=== PATIENT | female | born 2000 | race Caucasian/White ===

== ENCOUNTER 2020-03-18 17:49 | Emergency (ER) | payer OTHER ==
[2020-03-18] MEDS ORDERED: predniSONE 20 MG TAB As Ordered ONE (18:32)
[2020-03-18] MEDS ORDERED: predniSONE 20 MG TAB ONE (18:32)
== END 2020-03-18 18:35 | disposition home or self-care (01) ==
LOC: M ED 17:49
DX: T78.40XA Allergy, unspecified, initial encounter (principal); Y92.89 Other specified places as the place of occurrence of the external cause; F17.210 Nicotine dependence, cigarettes, uncomplicated

== ENCOUNTER → 2020-03-19 | Emergency (ER) | payer OTHER | END | disposition left against medical advice (07) | LOC: M ED 15:45 | DX: Z53.21 Procedure and treatment not carried out due to patient leaving prior to being seen by health care provider (principal) ==

== ENCOUNTER → 2020-05-16 | Outpatient (REF) | payer OTHER | LOC: M LAB REF 19:28 | PROVIDERS: ATTEND Physician Assistant | DX: J02.9 Acute pharyngitis, unspecified (principal) ==

== ENCOUNTER 2020-05-23 13:22 | Emergency (ER) | payer OTHER ==
[~2020-05-23] VITALS: Ht 170.2 cm; Wt 50.3 kg
[2020-05-23 15:09] LABS: BASO % 0.5 % (0.0-1.0); EOS % 0.2 % (0.0-3.0); HEMATOCRIT 48.4 % (36.0-47.0); HEMOGLOBIN 16.2 g/dl (12.0-15.5); LYMPH # 1.8 10^3/uL (1.5-5.0); LYMPH % 29.7 % (24.0-44.0); MEAN CORPUSCULAR HEMOGLOBIN 30.2 pg (27.0-33.0); MEAN CORPUSCULAR HGB CONC 33.5 g/dl (32.0-36.5); MEAN CORPUSCULAR VOLUME 90.1 fl (80.0-96.0); MONO # 0.4 10^3/uL (0.0-0.8); MONO % 6.3 % (0.0-5.0); NEUTROPHILS # 3.8 10^3/uL (1.5-8.5); PLATELET COUNT, AUTOMATED 270 10^3/uL (150-450); RED BLOOD COUNT 5.37 10^6/uL (4.00-5.40)
[2020-05-23 15:59] LABS: ERYTHROCYTE SEDIMENTATION RATE 2 mm/hr (0-20)
--- NOTE | 2020-05-23 16:05 | REPVR ---
PROCEDURE INFORMATION: Exam: US Left Breast Limited Exam date and time: 05/23/2020 3:17 PM Age: 20 years old Clinical indication: Screening exam; No personal or family HX of malignancy; Patient HX: PT states area tender for 2 weeks, provider concerned for abscess, PT states no redness, swelling or fever; Additional info: Pain/swelling left lateral breat ? abscess TECHNIQUE: Imaging protocol: Limited ultrasound of Left breast with image documentation, including axilla when performed. Exam focused on the search and evaluation for mass. COMPARISON: No relevant prior studies available. FINDINGS: Breast: Sonographic evaluation of the left breast from the 2:00 o'clock to the 4:00 o'clock positions was performed, which is the area of clinical concern of redness and swelling. No solid or cystic lesions seen in this area of the breast. No areas of fluid collection which could represent abscess formation. No significant abnormality identified. IMPRESSION: No sonographic evidence of a breast abscess. ASSESSMENT: BI-RADS 1: negative. Electronically signed by: Michael Poon On 05/23/2020 16:05:22 PM
[2020-05-23 16:18] VITALS: BP 107/67
== END 2020-05-23 16:19 | disposition home or self-care (01) ==
LOC: M ED 13:22
DX: N64.4 Mastodynia (principal); F17.200 Nicotine dependence, unspecified, uncomplicated; F12.10 Cannabis abuse, uncomplicated; Z79.3 Long term (current) use of hormonal contraceptives; Z91.030 Bee allergy status

== ENCOUNTER 2020-09-14 22:10 | Emergency (ER) | payer OTHER ==
[~2020-09-14] VITALS: Ht 170.2 cm; Wt 54.5 kg
--- OUTSIDE RECORDS SUMMARY | 2020-09-14 22:14 | CCD ---
Author Author [facility] Organization [facility] Address Unknown Phone Unavailable Care Team Providers Care Laser Beam Machine Operator Name Role Phone SUZANNEEJ PA Unavailable Unavailable SUZANNE, EJ PA Unavailable Unavailable SUZANNE, EJ PA Unavailable Unavailable SUZANNE, EJ PA Unavailable Unavailable SUZANNE, EJ PA Unavailable Unavailable SUZANNE, EJ PA Unavailable Unavailable SUZANNE, EJ PA Unavailable Unavailable SUZANNE, EJ PA Unavailable Unavailable SUZANNE, EJ PA Unavailable Unavailable SUZANNE, EJ PA Unavailable Unavailable SUZANNE, EJ PA Unavailable Unavailable SUZANNE, EJ PA Unavailable Unavailable SUZANNE, EJ PA Unavailable Unavailable SUZANNE, EJ PA Unavailable Unavailable SUZANNE, EJ PA Unavailable Unavailable SUZANNE, EJ PA Unavailable Unavailable SUZANNE, EJ PA Unavailable Unavailable SUZANEN, EJ PA Unavailable Unavailable SUZANNE, EJ PA Unavailable Unavailable SUZANNE, EJ PA Unavailable Unavailable SUZANNE, EJ PA Unavailable Unavailable SUZANNE, EJ PA Unavailable Unavailable SUZANNE, EJ PA Unavailable Unavailable SUZANNE, EJ PA Unavailable Unavailable SUZANNE, EJ PA Unavailable Unavailable SUZANNE, EJ PA Unavailable Unavailable SUZANNE, EJ PA Unavailable Unavailable SUZANNE, EJ PA Unavailable Unavailable SUZANNE, EJ PA Unavailable Unavailable SUZANNE, EJ PA Unavailable Unavailable SUZANNE, EJ PA Unavailable Unavailable SUZANNE, EJ PA Unavailable Unavailable SUZANNE, EJ PA Unavailable Unavailable SUZANNE, EJ PA Unavailable Unavailable SUZANNE, EJ PA Unavailable Unavailable SUZANNE, EJ PA Unavailable Unavailable SUZANNE, EJ PA Unavailable Unavailable EJ PALACIOS Unavailable Unavailable Re-disclosure Warning The records that you are about to access may contain information from federally-assisted alcohol or drug abuse programs. If such information is present, then the following federally mandated warning applies: This information has been disclosed to you from records protected by federal confidentiality rules (42 CFR part 2). The federal rules prohibit you from making any further disclosure of this information unless further disclosure is expressly permitted by the written consent of the person to whom it pertains or as otherwise permitted by 42 CFR part 2. A general authorization for the release of medical or other information is NOT sufficient for this purpose. The Federal rules restrict any use of the information to criminally investigate or prosecute any alcohol or drug abuse patient.The records that you are about to access may contain highly sensitive health information, the redisclosure of which is protected by Article 27-F of the [facility] Public Health law. If you continue you may have access to information: Regarding HIV / AIDS; Provided by facilities licensed or operated by the [facility] Office of Mental Health; or Provided by the [facility] Office for People With Developmental Disabilities. If such information is present, then the following [facility] mandated warning applies: This information has been disclosed to you from confidential records which are protected by state law. State law prohibits you from making any further disclosure of this information without the specific written consent of the person to whom it pertains, or as otherwise permitted by law. Any unauthorized further disclosure in violation of state law may result in a fine or mcc sentence or both. A general authorization for the release of medical or other information is NOT sufficient authorization for further disc losure. Encounters Encounter Providers Location Date Indications Data Source(s ) Outpatient Attender: EJ Siegel ry 05/16/2020 04:50:00 PM EDT [facility] ([facility], [facility]) Insurance Providers Payer name Policy type / Coverage type Policy ID Covered constitution party ID Covered constitution party's relationship to mckeon Policy Mckeon Plan Information EAST HUMANA [id number] HU2 [id number] HUMANA EAST REG O [id number] P [id number] EAST HUMANA [id number] 2 [id number] ACTIVE DUTY [id number] [id number] Results ID Date Data Source [id number] 05/28/2020 12:00:00 AM EDT [facility] Yanet Hannon NP Patient Name: DELONTE OCHOA [id number] Date of :[address] [address] Date of Exam: 05/28/2020PH#: Fax: [phone] CORRE CTED REPORT: The referring information was incorrect on the originalreport. Only the referring information was changed. Nothing has changedin the body of the report.EXAM: MAMMO UNI DIAGNOSTIC INCLUD CAD AND ULTRASOUND BREAST UNI LIMITEDCLINICAL INFORMATION: Diagnostic left breast.Based on the personal and family history information your patient suppliedat the time of imaging, her lifetime risk of breast cancer estimated by theTyrer-Cuzick model is 16.6%. Given that this patient has less than 20% TCrisk score, no further medical management is currently recommended at thistime.There are no priors for comparison.The patient presents with a clinically palpable mass in the left breastupper/outer quadrant for which standard 2D FFDM was obtained in the CC andMLO projections along with diagnostic digital magnified spot compressionviews over the area of interest indicated by the technologist placing atriangular shaped marker on the skin. 3D digital breast tomosynthesis ofthe left breast was also obtained in both CC and MLO projections.The patient states that the last clinical breast exam was in May.Dense heterogeneous fibroglandular elements are seen bilaterally to such adegree that the sensitivity of the mammogram in detecting cancer isdecreased. There are no masses. There is no internal architecturaldistortion. There are no suspicious microcalcific clusters.Diagnostic digital magnified spot compression views over the region ofinterest in the CC and MLO projections show no abnormalities.Diagnostic left breast ultrasonography over the region of interest from 12to 3 o'clock positions inclusive show no cystic or solid masses.The Volpara volumetric breast density category is D, the breasts areextremely dense which lowers the sensitivity of mammography.IMPRESSION:BI-RADS Category 2 - Benign Finding(s). There is no mammographic evidenceor ultrasonographic evidence of malignant alteration of the left breast.A negative mammogram and a negative ultrasound examination should nevercurtail biopsy of a clinically palpable mass or clinically suspicious areaof the breast. Surgical consultation and/or breast MRI should beconsidered.BINH Trevizo/Christopher you for referring DELONTE OCHOA to our office.cc: BRENDA Conteh Electronically Signed - DENISE STEPHENSON DO 05/30/20 13:27 Name Value Range Interpretation Code Description Data Laureen rce(s) Supporting Document(s) ID Date Data Source [id number] 05/28/2020 12:00:00 AM EDT [facility] Yanet Hannon NP Patient Name: DELONTE OCHOA [id number] [facility]. Date of :2000[facility] [place] [address] Date of Exam: 05/28/2020#: Fax: [phone] CORRE CTED REPORT: The referring information was incorrect on the originalreport. Only the referring information was changed. Nothing has changedin the body of the report.EXAM: MAMMO UNI DIAGNOSTIC INCLUD CAD AND ULTRASOUND BREAST UNI LIMITEDCLINICAL INFORMATION: Diagnostic left breast.Based on the personal and family history information your patient suppliedat the time of imaging, her lifetime risk of breast cancer estimated by theTyrer-Cuzick model is 16.6%. Given that this patient has less than 20% TCrisk score, no further medical management is currently recommended at thistime.There are no priors for comparison.The patient presents with a clinically palpable mass in the left breastupper/outer quadrant for which standard 2D FFDM was obtained in the CC andMLO projections along with diagnostic digital magnified spot compressionviews over the area of interest indicated by the technologist placing atriangular shaped marker on the skin. 3D digital breast tomosynthesis ofthe left breast was also obtained in both CC and MLO projections.The patient states that the last clinical breast exam was in May.Dense heterogeneous fibroglandular elements are seen bilaterally to such adegree that the sensitivity of the mammogram in detecting cancer isdecreased. There are no masses. There is no internal architecturaldistortion. There are no suspicious microcalcific clusters.Diagnostic digital magnified spot compression views over the region ofinterest in the CC and MLO projections show no abnormalities.Diagnostic left breast ultrasonography over the region of interest from 12to 3 o'clock positions inclusive show no cystic or solid masses.The Volpara volumetric breast density category is D, the breasts areextremely dense which lowers the sensitivity of mammography.IMPRESSION:BI-RADS Category 2 - Benign Finding(s). There is no mammographic evidenceor ultrasonographic evidence of malignant alteration of the left breast.A negative mammogram and a negative ultrasound examination should nevercurtail biopsy of a clinically palpable mass or clinically suspicious areaof the breast. Surgical consultation and/or breast MRI should beconsidered.BINH Trevizo/Christopher you for referring DELONTE OCHOA to our office.cc: BRENDA Conteh Electronically Signed - DENISE STEPHENSON DO 05/30/20 13:27 Name Value Range Interpretation Code Description Data Laureen rce(s) Supporting Document(s) ID Date Data Source [id number] 05/16/2020 05:28:00 PM EDT [facility] ([facility], [facility]) Name Value Range Interpretation Code Description Data Laureen rce(s) Supporting Document(s) Group A Strep Culture Laboratory test result [facility] ([facility]) FULL REPORT IN LAB NOTES (eCW and [facility] ). NEGATIVE FOR STREP PYOGENES (GROUP A) Procedure Social History Code Duration Value Status Description Data Source(s ) Smoking 05/16/2020 12:00:00 AM EDT Patient is a former smoker completed Patient is a former smoker [facility] ([facility]) Vital Signs ID Date Data Source UNK Name Value Range Interpretation Code Description Data Source(s) Body mass index (BMI) [Ratio] 18.0 kg/m2 18.0 k g/m2 [facility] ([facility]) Body height 67 [in_i] 67 [in_i] [facility] ([facility]) 5'7" Body weight 115.00 [lb_av] 115.00 [lb_av] [facility] ([facility]) Body temperature 98.0 [degF] 98.0 [degF] [facility] ([facility]) Oxygen saturation in Arterial blood by Pulse oximetry 96 % 96 % [facility] ([facility]) Respiratory rate 14 /min 14 /min [facility] ( [facility]) Heart rate 78 /min 78 /min [facility] ([facility]) Diastolic blood pressure 75 mm[Hg] 75 mm[Hg] [facility] ([facility]) Systolic blood pressure 138 mm[Hg] 138 mm[Hg] [facility])
[2020-09-14] MEDS ORDERED: PREN27TA3 (22:16)
--- OUTSIDE RECORDS SUMMARY | 2020-09-14 22:57 | CCD ---
Author Author [facility] Organization [facility] Address Unknown Phone Unavailable Care Team Providers Care Supervisor Central Supply Name Role Phone SUZANNEEJ PA Unavailable Unavailable [...] is protected by Article 27-F of the [facility] Public Health law. If you continue you may have access to information: Regarding HIV / AIDS; Provided by facilities licensed or operated by the [facility] Office of Mental Health; or Provided by the [facility] Office for People With Developmental Disabilities. If such information is present, then the following [facility] mandated warning applies: This information has been [...] law may result in a fine or usp sentence or both. A general authorization for the release of medical or other information is NOT sufficient authorization for further disc losure. Encounters Encounter Providers Location Date Indications Data Source(s ) Outpatient Attender: EJ Siegel ry 05/16/2020 04:50:00 PM EDT [facility] ([facility], [facility]) Insurance Providers Payer name Policy type / Coverage type Policy ID Covered democrat ID Covered democrat's relationship to mckeon Policy Mckeon Plan Information [employer] [id number] HU2 [id number] HUMANA EAST REG O [id number] P [id number] EAST [employer]NA [id number] ACTIVE DUTY [id number] UNK2 [id number] Results ID Date Data Source [id number] 05/28/2020 12:00:00 AM EDT [facility] Yanet Hannon NP Patient Name: DELONTE OCHOA [id number] Date of :[address] [address] Date of Exam: 05/28/2020PH#: Fax: [phone] CORRE [...] rce(s) Supporting Document(s) ID Date Data Source [id number] 05/28/2020 12:00:00 AM EDT [facility] Yanet Hannon NP Patient Name: DELONTE OCHOA [id number] [facility]. Date of :[address] [place] [address] Date of Exam: 05/28/2020#: Fax: [phone] CORRE [...] rce(s) Supporting Document(s) ID Date Data Source [id number] 05/16/2020 05:28:00 PM EDT [facility] ([facility], [facility]) Name Value Range Interpretation Code Description Data Luareen rce(s) Supporting Document(s) Group A Strep Culture Laboratory test result [facility] ([facility]) FULL REPORT IN LAB NOTES ([facility]CW and [facility] ). NEGATIVE FOR STREP PYOGENES (GROUP A) Procedure Social History Code Duration Value Status Description Data Source(s ) Smoking 05/16/2020 12:00:00 AM EDT Patient is a former smoker completed Patient is a former smoker [facility] ([facility]) Vital Signs ID Date Data Source UNK Name Value Range Interpretation Code Description Data Source(s) Body mass index (BMI) [Ratio] 18.0 kg/m2 18.0 k g/m2 [facility] ([facility]) Body height 67 [in_i] 67 [in_i] [facility] ([facility]) 5'7" Body weight 115.00 [lb_av] 115.00 [lb_av] [facility] ([facility]) Body temperature 98.0 [degF] 98.0 [degF] [facility] ([facility]) Oxygen saturation in Arterial blood by Pulse oximetry 96 % 96 % [facility] ([facility]) Respiratory rate 14 /min 14 /min [facility] ( [facility]) Heart rate 78 /min 78 /min [facility] ([facility]) Diastolic blood pressure 75 mm[Hg] 75 mm[Hg] [facility] ([facility]) Systolic blood pressure 138 mm[Hg] 138 mm[Hg] [facility])
[2020-09-15 00:15] VITALS: BP 104/61
== END 2020-09-15 00:18 | disposition home or self-care (01) ==
LOC: M ED 22:10
DX: O9A.211 Injury, poisoning and certain other consequences of external causes complicating pregnancy, first trimester (principal); W00.0XXA Fall on same level due to ice and snow, initial encounter; Y92.410 Unspecified street and highway as the place of occurrence of the external cause; Z91.030 Bee allergy status; O99.511 Diseases of the respiratory system complicating pregnancy, first trimester; J30.89 Other allergic rhinitis; Z77.098 Contact with and (suspected) exposure to other hazardous, chiefly nonmedicinal, chemicals; Z3A.01 Less than 8 weeks gestation of pregnancy

== ENCOUNTER 2020-11-11 18:47 | Emergency (ER) | payer OTHER ==
[~2020-11-11] VITALS: Ht 172.7 cm; Wt 56.8 kg
[~2020-11-11 18:47] MED LIST: PREN27TA3
[2020-11-11] MEDS ORDERED: diazePAM 5MG TABLET PO ONE (19:55)
[2020-11-11] MEDS ORDERED: ACETAMINOPHEN 325 MG TAB PO ONE (19:55)
[2020-11-11 21:15] VITALS: BP 101/58
[2020-11-11] MEDS ORDERED: VALI5TAB PO (21:48)
== END 2020-11-11 22:03 | disposition home or self-care (01) ==
LOC: M ED 18:47
DX: S39.012A Strain of muscle, fascia and tendon of lower back, initial encounter (principal); X58.XXXA Exposure to other specified factors, initial encounter; Y92.89 Other specified places as the place of occurrence of the external cause; Z77.098 Contact with and (suspected) exposure to other hazardous, chiefly nonmedicinal, chemicals; F12.20 Cannabis dependence, uncomplicated

== ENCOUNTER → 2021-01-02 | Outpatient (REF) | payer OTHER ==
[~2021-01-02] MED LIST changes: +VALI5TAB PO
== END ==
LOC: M WUC 12:31
PROVIDERS: ATTEND Physician Assistant
DX: J02.9 Acute pharyngitis, unspecified (principal)

== ENCOUNTER 2021-04-04 09:37 | Outpatient (CLI) | payer OTHER ==
[~2021-04-04] VITALS: Ht 170.2 cm; Wt 65.3 kg
[2021-04-04 09:58] VITALS: BP 114/69
[2021-04-04] MEDS ORDERED: TUMS750C22 PO (10:02)
[2021-04-04] MEDS ORDERED: TUMS750C5 PO (10:02)
[2021-04-04] MEDS ORDERED: HOME MED LIST COMPLETE! XX SCH (10:05)
--- NOTE | 2021-04-04 11:28 | REP ---
INDICATION: growth scan for size less than dates. COMPARISON: None. TECHNIQUE: Real-time sonographic evaluation of the gravid uterus performed. FINDINGS: Estimated gestational age is35 weeks 4 days, EDC 05/05/2021. Today's measurements indicate appropriate growth. Presentation: Cephalic Placenta left, grade 1, without evidence of placenta previa. heart rate is recorded at 131 beats per minute. Amniotic fluid is lower limits of normal. DARRYN 7.5, normal range 7.8-24.9. Biophysical profile score 8/8. SD ratio umbilical artery 2.52, normal 1.66-3.54. RI 0.60, normal 0.45-0.71.. Closed cervical length is measured at 3.3 cm. Biometry chart: BPD: 90 mm, 36 weeks 2 days, 59th percentile. HC: 306 mm, 34 weeks 0 days, 26th percentile AC: 306 mm, 34 weeks 4 days, 34th percentile Femur length: 66 mm, 33 weeks 6 days, 24th percentile HC to AC ratio: 1.00, normal range 0.93-1.12. Estimated weight: 2434g, 20th percentile. anatomy: Cranium: Grossly normal Lateral Ventricles/Choroid Plexus: Not well seen due to position Posterior Fossa/Cerebellum: Not well seen due to position Nose/lips/profile: Not well seen due to position Four chamber heart: Grossly normal Right ventricular outflow tract: Grossly normal Left ventricular outflow tract: Grossly normal Left-sided stomach: Grossly normal Kidneys: Grossly normal Bladder: Grossly normal Cord Insertion: Grossly normal 3 vessel cord: Grossly normal Spine: Not well seen due to position IMPRESSION: Viable single intrauterine gestation as above. <Electronically signed by Miky Vidales > 04/04/21 1126
--- NOTE | 2021-04-04 12:24 | IPNPDOC ---
Text Note Date of Service The patient was seen on 04/04/21. NOTE S: 20 yo adwoa [id number] @35+4 presenting from clinic for evaluation for size less than dates measuring 29 cm FH at 35 wks. States presenting to clinic today for evaluation of vaginal discharge. Denies other concerns. O: VSS RNST, FHR 130, mod variability, +accel, -decel, occasional contractions noted. BPP and growth completed in radiology. BPP 8/8, DARRYN 7.5cm, cephalic presentat ion. Growth 20%, EFW 2434 gm EXAMINATION REQUESTED: US OBS SINGEL GEST REASON FOR PATIENT VISIT: LABOR CHECK. REASON FOR EXAM/COMMENT: growth scan for size less than dates INDICATION: growth scan for size less than dates. COMPARISON: None. TECHNIQUE: Real-time sonographic evaluation of the gravid uterus performed. FINDINGS: Estimated gestational age is35 weeks 4 days, EDC 05/05/2021. Today's christiano urements indicate appropriate growth. Presentation: Cephalic Placenta left, grade 1, without evidence of placenta previa. heart rate is recorded at 131 beats per minute. Amniotic fluid is lower limits of normal. DARRYN 7.5, normal range 7.8-24.9. Biophysical profile score 8/8. SD ratio umbilical artery 2.52, normal 1.66-3.54. RI 0.60, normal 0.45-0.71.. Closed cervical length is measured at 3.3 cm. Biometry chart: BPD: 90 mm, 36 weeks 2 days, 59th percentile. HC: 306 mm, 34 weeks 0 days, 26th percentile AC: 306 mm, 34 weeks 4 days, 34th percentile Femur length: 66 mm, 33 weeks 6 days, 24th percentile HC to AC ratio: 1.00, normal range 0.93-1.12. Estimated weight: 2434g, 20th percentile. anatomy: Cranium: Grossly normal Lateral Ventricles/Choroid Plexus: Not well seen due to position Posterior Fossa/Cerebellum: Not well seen due to position Nose/lips/profile: Not well seen due to position Four chamber heart: Grossly normal Right ventricular outflow tract: Grossly normal Left ventricular outflow tract: Grossly normal Left-sided stomach: Grossly normal Kidneys: Grossly normal Bladder: Grossly normal Cord Insertion: Grossly normal 3 vessel cord: Grossly normal Spine: Not well seen due to position IMPRESSION: Viable single intrauterine gestation as above. <Electronically signed by Miky Vidales > 04/04/21 1124 A: Size less than dates Smoking in [id number] P: Strict return precautions given for PTL/ labor, FKC reviewed. Discussed hydration in , normal measurements, cessation of smoking/vaping. Pt instructed to keep regularly scheduled f/u appointments in clinic. VS,Fishbone, I+O VS, Fishbone, I+O Vital Signs Date Time Temp Pulse Resp B/P (MAP) Pulse Ox O2 Delivery O2 Flow Rate FiO2 04/04/21 09:58 98.5 77 16 114/69 (84) JOY LUCIO CNM Apr 04, 2021 12:24
== END 2021-04-04 12:20 | disposition home or self-care (01) ==
LOC: M LDO 09:37
PROVIDERS: ATTEND Registered Nurse
DX: O26.893 Other specified pregnancy related conditions, third trimester (principal); Z3A.35 35 weeks gestation of pregnancy; N89.8 Other specified noninflammatory disorders of vagina; O99.333 Smoking (tobacco) complicating pregnancy, third trimester; F17.210 Nicotine dependence, cigarettes, uncomplicated; O26.843 Uterine size-date discrepancy, third trimester; Z91.030 Bee allergy status
CPT/HCPCS: 59025; 76811; 76820; G0378; G0463

== ENCOUNTER 2021-04-12 19:04 | Outpatient (CLI) | payer OTHER ==
[~2021-04-12] VITALS: Ht 170.2 cm; Wt 65.5 kg
[~2021-04-12 19:04] MED LIST changes: +TUMS750C22 PO; +TUMS750C5 PO
[2021-04-12 19:22] VITALS: BP 112/69
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
== END 2021-04-12 20:35 | disposition home or self-care (01) ==
LOC: M LDO 19:04
PROVIDERS: ATTEND Obstetrics & Gynecology
DX: O9A.313 Physical abuse complicating pregnancy, third trimester (principal); Z3A.36 36 weeks gestation of pregnancy; Z91.030 Bee allergy status
CPT/HCPCS: 59025; 81001; 87070; G0378; G0463

== ENCOUNTER 2021-04-23 15:24 | Outpatient (CLI) | payer OTHER ==
[~2021-04-23] VITALS: Ht 170.2 cm; Wt 66.5 kg
[2021-04-23 15:46] VITALS: BP 120/59
== END 2021-04-23 17:50 | disposition home or self-care (01) ==
LOC: M LDO 15:24
PROVIDERS: ATTEND Registered Nurse
DX: O41.03X0 Oligohydramnios, third trimester, not applicable or unspecified (principal); Z3A.38 38 weeks gestation of pregnancy; Z91.030 Bee allergy status
CPT/HCPCS: 59025; G0378; G0463

== ENCOUNTER 2021-04-26 21:01 | Outpatient (CLI) | payer OTHER ==
[~2021-04-26] VITALS: Ht 170.2 cm; Wt 67.1 kg
[2021-04-26 21:17] VITALS: BP 117/61
[2021-04-26] MEDS ORDERED: PEPC40TA12 PO (21:22)
[2021-04-26] MEDS ORDERED: HOME MED LIST COMPLETE! XX SCH (21:25)
[2021-04-26 21:50] VITALS: BP 115/70
== END 2021-04-26 21:57 | disposition home or self-care (01) ==
LOC: M LDO 21:01
PROVIDERS: ATTEND Obstetrics & Gynecology
DX: O60.03 Preterm labor without delivery, third trimester (principal); Z3A.38 38 weeks gestation of pregnancy; Z91.030 Bee allergy status
CPT/HCPCS: 59025; G0378; G0463

== ENCOUNTER 2021-04-29 18:39 | Inpatient (IN) | payer OTHER ==
[2021-04-29] VITALS (21 sets, daily range): BP systolic 92–132; BP diastolic 50–76
[~2021-04-29] VITALS: Ht 170.2 cm; Wt 66.3 kg
[~2021-04-29 18:39] MED LIST changes: +PEPC40TA12 PO
[2021-04-29] MEDS ORDERED: HOME MED LIST COMPLETE! XX SCH (19:00)
[2021-04-29] MEDS ORDERED: TRANEXAMIC ACID INJection 1,000 MG in NS 100 ML IV PRN (19:20)
[2021-04-29] MEDS ORDERED: METHYLERGONOVINE MALEATE 0.2 MG/ML VIAL (J2210) IM PRN (19:20)
[2021-04-29] MEDS ORDERED: LIDOCAINE 1% MDV 20ML VIAL INFIL PRN (19:20)
[2021-04-29] MEDS ORDERED: OXYTOCIN INJ 10 UNITS/ML VIAL (J2590) IM PRN (19:20)
[2021-04-29] MEDS ORDERED: LR 1,000 ML IV SCH (19:20)
[2021-04-29] MEDS ORDERED: OXYTOCIN DRIP 30 UNITS in IV 1 EA IV PRN ×4 (19:20)
[2021-04-29] MEDS ORDERED: CARBOPROST TROMETHAMINE 250 MCG/ML AMP IM PRN (19:20)
[2021-04-29] MEDS ORDERED: LACTATED RINGER'S 1000 ML IV STA (19:20)
--- NOTE | 2021-04-29 19:39 | HPEPDOC ---
Obstetrical History & Physical General Date of Admission Apr 29, 2021 at 19:23 History of Present Illness 21yo at 39+1 presents for labor check. She endorses contractions all day t hat have worsened. Denies vaginal bleeding, loss of fluid. Endorses positive movement. Care Care: Good Care Dating Final EDC: May 05, 2021 Final EDC by: LMP, 1st trimester (US) LMP: Jul 29, 2020 Antepartum Course Height (inches): 67 Pre- weight (lbs.): 120 Admission Weight (lbs.): 146 Change in Weight (lbs.): 26 Past Medical History Past Obstetrical History : Past Obstetrical History: [employer] History: Other (chlamydia 2018) Past Medical History Medical History denies Surgical History: Denies/None Family History Family History mother - thyroid and high blood pressure maternal grandmother - thyroid paternal grANDFATHER - lung cancer Social History Marital Status: Family situation: Spouse/partner home * Smoker: current smoker (vapes) Alcohol: Denies Drugs: denies Abuse Violence Screening Have you been hit/kicked/slapp: No Have you been sexually assault: No Imunizations Tdap status: current Influenza Status: current Allergies Coded Allergies: Rabbit (Verified Allergy, Intermediate, HIVES/Itching, 05/23/20) HIVES/Itching bee venom protein (honey bee) (Verified Allergy, Intermediate, HIVES/Itching, 05/23/20) Medications Scheduled Famotidine (Pepcid) 40 Mg Tablet, 1 TAB PO DAILY Miscellaneous Medications Pnv,Calcium 72/Iron/Folic Acid ( Vitamin Plus Low Iron) 1 Each Tablet Physical Examination Physical Examination GENERAL: Alert and oriented times three. ABDOMEN: Gravid and non-tender to touch. FETUS: Is vertex (VTX) by sterile vaginal examination (SVE), fetus is vertex (VTX) by ultrasound HEART RATE: Regular rate LUNGS: nonlabored breathing EXTREMITIES: No edema. Vital Signs/I&O Vital Signs Date Time Temp Pulse Resp B/P (MAP) Pulse Ox O2 Delivery O2 Flow Rate FiO2 04/29/21 18:55 99.4 82 18 132/76 (94) Pertinent Laboratoy Data Blood Type: A+ RBC Antibody Screen: Negative HIV: Negative Hepatitis B: Negative Rapid Plasma Reagin: Nonreactive Rubella: Immune Varicella: Immune Chlamydia/Gonorrhea: Negative Group B Streptococcus: Negative Quad Screen Test: Negative Cystic Fibrosis: Negative Glucose Tolerance Test: 102 Anatomy Ultrasound Placenta Location: Left Lateral Normal Anatomy: Yes Placenta Previa: No Steroid Therapy Steroid Therapy: No Vaginal Examination Dilation: 5 cm Effacement: 90% Station: -1, 0 Presentation: Cephalic presentation Position: Vertex (occiput) Assessment Heart Rate (FHR): 140 Variability: Moderate Accelerations: Positive Decelerations: None Tocometer Contractions: Yes Frequency: regular, every 2-5 min. Multi-drug resistant Organism: No history of MDRO Assessment/Plan Assessment Radha Barnhart is a 21-year-old (G)1 para (P)0 at 39+1 weeks by LMP and first-trimester ultrasound. Presents to Labor and Delivery (L&D) for contract ions, found to be in labor 5cm dilated. Uncomplicated course, GBS negative. Plan Admit and orient. Cloth Bale Header and consent. Diet: clear liquid. Group B Streptococcus (GBS) [negative]. Labs and intravenous (IV) per unit protocol. Counseled on Pitocin and induction of labor (IOL). Lactated Ringers (LR): Bolus 500 mL, then at 125 mL/hr. Anticipate [normal spontaneous delivery ()]. C-S as appropriate. Labor and Delivery Counseling L&D consent We will deliver your baby through the vagina with possible assistance of forceps or vacuum device if needed for maternal or indications. Forceps and vacuum are devices that can assist with vaginal delivery when normal pushing efforts cannot achieve delivery on their own or when delivery is needed in an emergency for baby's well-being. Medications may be required to induce or augment (help) your labor in order to achieve a vaginal delivery. An episiotomy may be required to help your baby to delivery vaginally. You may also require repair of any lacerations or tears of your vagina or vulva that are caused by delivery. In some cases, emergencies can occur that require an emergency section delivery so quickly that there may not be enough time to stop and complete consent forms for section. Understand that if this occurs, your providers will discuss the need for a section with you before they proceed with surgery. section is the delivery of your baby through an incision in your abdomen. In some situations, section may be safer to mom and baby than continuing labor and is only performed when clinically indicated. Risks of vaginal delivery include but are not limited to: Bleeding, infection, injury to the vagina, pelvic structures, injury to baby, damage to the uterus, reactions to anesthesia, uterine rupture, risk of hysterectomy for life threatening bleeding, or . Medications used to induce or augment labor may increase your risk for infection, uterine tachysystole, uterine rupture, heart rate abnormalities, need for emergency delivery or possible cesa rean hysterectomy, and hemorrhage. Additional risks for use of forceps and vacuum include: increased risk of perineal and vaginal lacerations, risk of urinary or bowel incontinence, increased risk of injury to baby with bruising, scratches, hematomas on the head, or intracranial bleeding. ROMARIO FLORES. DO Apr 29, 2021 19:39
[2021-04-29 20:08] LABS: MEAN CORPUSCULAR HEMOGLOBIN 28.4 pg (27.0-33.0); MEAN CORPUSCULAR HGB CONC 33.3 g/dl (32.0-36.5); MEAN CORPUSCULAR VOLUME 85.3 fl (80.0-96.0); PLATELET COUNT, AUTOMATED 223 10^3/uL (150-450); RED BLOOD COUNT 4.22 10^6/uL (4.00-5.40); WHITE BLOOD COUNT 11.2 10^3/uL (4.0-10.0)
[2021-04-29] MEDS ORDERED: FENTANYL 2MCG/ML ROPIVACAINE 0.2% IN 0.9% NACL 100ML IVBAG As Ordered ONE (20:21)
[2021-04-29] MEDS ORDERED: EPIDURAL/PCA KEYS XX PRN (21:00)
[2021-04-29] MEDS ORDERED: diphenhydrAMINE 50MG/ML VIAL (J1200) IV PRN (21:00)
[2021-04-29] MEDS ORDERED: LACTATED RINGER'S 1000 ML IV PRN (21:00)
[2021-04-29] MEDS ORDERED: NALOXONE INJ 0.4MG/1ML VIAL (J2310 PER 1MG) IV PRN (21:00)
[2021-04-29] MEDS ORDERED: EPIDURAL COMMENT XX SCH (21:00)
[2021-04-29] MEDS ORDERED: ePHEDrine SULFATE 25 MG/5 ML(5MG/ML) SYRINGE IV PRN (21:00)
[2021-04-29] MEDS ORDERED: ONDANSETRON 4MG/2ML VIAL IV PRN (21:00)
[2021-04-29] MEDS ORDERED: REFRIGERATOR IV KEYS XX PRN (21:00)
[2021-04-29] MEDS ORDERED: FENTANYL/ROPIVACAINE/NACL BAG 100 ML EPIDURAL SCH (21:00)
--- NOTE | 2021-04-29 22:59 | IPNPDOC ---
Obstetrical Progress Note Date of Service Apr 29, 2021 Subjective Patient comfortable with epidural, denies complaints. Objective Vital Signs Date Time Temp Pulse Resp B/P (MAP) Pulse Ox O2 Delivery O2 Flow Rate FiO2 04/29/21 21:59 98.5 75 16 94/50 (65) Assessment Heart Rate (FHR): 120 Variability: Moderate Accelerations: Positive Decelerations: None Heart Rate Tracing: Category I Tocometer Contractions: Yes Frequency: regular, every 2-5 min. Sterile Vaginal Examination Dilation: 9 cm Effacement (%): 100% Station: -1, 0 Postion/Presentation: Cephalic presentation Assessment and Plan Status: Reassuring Group B Streptococcus: Negative Anticipate: Vaginal Delivery Additional Comments Patient declined amniotomy. So far has progressed in natural labor. Routine intrapartum care, anticipate vaginal delivery. ROMARIO FLORES DO Apr 29, 2021 22:59
[2021-04-30] VITALS (13 sets, daily range): BP systolic 102–132; BP diastolic 54–79
--- NOTE | 2021-04-30 03:43 | DNPDOC ---
[facility] Delivery Note Delivery Note DATE OF DELIVERY: [id number] PREDELIVERY DIAGNOSIS: 39+2 weeks' gestation and labor. POST DELIVERY DIAGNOSIS: Delivered. PROCEDURE: Spontaneous vaginal delivery WHEAT BUYER: Romario Solomon DO ANESTHESIA: epidural ESTIMATED BLOOD LOSS: 300 mL. FINDINGS: 6 pound 9 ounce 2990g infant, Score 9/9, right compound hand presentation DELIVERY SUMMARY: Was attending another delivery and was called to room by nursing as head was . Over the next set of contractions the head delivered with a compound right hand. The anterior shoulder delivered without difficulty followed by the posterior shoulder and the corpus. The was placed on the maternal abdomen and dried/stimulated. After one minute delay the cord was clamped and cut. The placenta delivered intact spontaneously. Inspection of the perineum revealed a left labial abrasion closed with 4-0 vicryl in a running fashion. Hemostasis was noted. Mother and baby were left in good condition. Routine care. ROMARIO SOLOMON DO Apr 30, 2021 03:43
[2021-04-30] MEDS ORDERED: MEASLES,MUMPS,RUBELLA VACCINE INJ (MMR-II) (90707) SC SCH (03:55)
[2021-04-30] MEDS ORDERED: IBUPROFEN 800 MG TAB PO PRN (03:55)
[2021-04-30] MEDS ORDERED: ACETAMINOPHEN TAB 650MG DOSE (2X325MG) PO PRN (03:55)
[2021-04-30] MEDS ORDERED: IBUPROFEN 600MG TAB PO PRN (03:55)
[2021-04-30] MEDS ORDERED: DOCUSATE SODIUM 100MG CAPSULE PO PRN (03:55)
[2021-04-30] MEDS ORDERED: METHYLERGONOVINE MALEATE 0.2 MG TAB PO PRN (03:55)
[2021-04-30] MEDS ORDERED: ONDANSETRON 4MG/2ML VIAL IV PRN (03:55)
[2021-04-30] MEDS ORDERED: RHOGAM 300 MCG (1500 IU) INJ (J2790) IM SCH (03:55)
[2021-04-30] MEDS ORDERED: DIBUCAINE 1% OINTMENT 30GM TOP PRN (03:55)
[2021-04-30] MEDS: PRENATAL VITAMINS CHEWABLE TABLET PO SCH (08:44)
[2021-04-30] MEDS: ACETAMINOPHEN 500 MG TAB PO PRN ×2 (09:57→23:37)
[2021-05-01 06:28] VITALS: BP 97/59
[2021-05-01] MEDS ORDERED: DOCU100C16 PO (07:01)
[2021-05-01] MEDS ORDERED: IBUP-1022 PO (07:01)
[2021-05-01] MEDS: PRENATAL VITAMINS CHEWABLE TABLET PO SCH (07:29)
[2021-05-01] MEDS: ACETAMINOPHEN 500 MG TAB PO PRN (07:30)
[2021-05-01 08:19] LABS: HEMOGLOBIN 12.7 g/dl (12.0-15.5); MEAN CORPUSCULAR HEMOGLOBIN 27.9 pg (27.0-33.0); MEAN CORPUSCULAR HGB CONC 31.8 g/dl (32.0-36.5); MEAN CORPUSCULAR VOLUME 87.7 fl (80.0-96.0); PLATELET COUNT, AUTOMATED 237 10^3/uL (150-450); RED BLOOD COUNT 4.56 10^6/uL (4.00-5.40); WHITE BLOOD COUNT 13.7 10^3/uL (4.0-10.0)
--- NOTE | 2021-05-01 08:37 | DSES ---
DISCHARGE SUMMARY DATE OF ADMISSION: 04/29/2021 DATE OF DISCHARGE: 05/01/2021 BRIEF HISTORY: This is a 21-year-old 1 now para 1, admitted with contractions at 39 weeks of gestation. She had an epidural placed, spontaneous vaginal delivery, livebirth female weighing 6 pounds, 9 ounces, 2990 grams, Apgars of 9 and 9 at 1 and 5 minutes respectively. On her first day, we discussed phlebitis, cystitis, mastitis, endometritis, cellulitis, diet, exercise, pain management, perineal, breast and wound care. PHYSICAL EXAMINATION: The rest of the examination is unremarkable. Normocephalic, atraumatic. Neck with full range of motion. Pupils equal and reactive to light. Distal pulses are symmetric. No evidence of DVT, PE or superficial phlebitis. Chest is clear bilaterally to bases. No wheezes or rhonchi. No CVA tenderness. Abdomen is soft, four quadrant bowel sounds are noted. Uterus is two below. Lochia is moderate. The perineum is intact. No rashes, lesions or pruritus. No arthralgias or myalgias. No complaint of joint pain. No complaint of cough, wheeze, shortness of breath or dyspnea on exertion. No nausea, vomiting, diarrhea or constipation. No urgency or frequency. Patient is presently breast-feeding, however she is very fatigued and tired and somewhat depressed because of lack of sleep. Her admitting hemoglobin was 12.0, hematocrit 36.0 and platelets were 223,000. Her vital signs on discharge: Her blood pressure was 97/59, respirations were 17, pulse 75, temperature is 98.5. In summary, we have a term gestation, delivered a livebirth female . 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 All questions were answered. A 20 minute discussion. Patient was discharged improved. cc: [facility]
== END 2021-05-01 14:05 | disposition home or self-care (01) | DRG 807 ==
LOC: M LDO 18:39 → M LDI 19:23 → M OBS 04-30 04:42
PROVIDERS: ADMIT Obstetrics & Gynecology; ATTEND Obstetrics & Gynecology
PROC: 10E0XZZ Delivery of Products of Conception, External Approach (ICD-10-PCS; principal; 2021-04-30)
DX: O99.334 Smoking (tobacco) complicating childbirth (principal); Z37.0 Single live birth; Z3A.39 39 weeks gestation of pregnancy; F17.290 Nicotine dependence, other tobacco product, uncomplicated; O64.5XX0 Obstructed labor due to compound presentation, not applicable or unspecified

== ENCOUNTER → 2022-08-21 | Outpatient (REF) | payer OTHER ==
[~2022-08-21] MED LIST changes: +DOCU100C16 PO; +IBUP-1022 PO
[2022-08-22 10:39] LABS: GC DNA AMPLIFICATION NEGATIVE (NEGATIVE)
== END ==
LOC: M LAB REF 08:25
PROVIDERS: ATTEND Student in an Organized Health Care Education/Training Program
DX: R30.0 Dysuria (principal)